=== PATIENT | male | born 1965 | race Caucasian/White ===

== ENCOUNTER 2017-06-12 19:59 | Emergency (ER) | payer SELFPAY ==
[~2017-06-12] VITALS: Ht 180.3 cm; Wt 69.2 kg
[2017-06-12] MEDS ORDERED: METRONIDAZOL500 MG PO (20:30)
[2017-06-12] MEDS ORDERED: DOXYCYCLINE HY100 MG PO (20:31)
[2017-06-12] MEDS ORDERED: PANTOPRAZOLE SO40 M1 PO (20:32)
[2017-06-12] MEDS ORDERED: PEPTO BISMOL262 MG PO (20:32)
[2017-06-12 21:05] LABS: HEMATOCRIT 38.9 % (39.0-50.0); HEMOGLOBIN 12.6 g/dl (14.0-18.0); IMMATURE GRANULOCYTES 0.4 % (0.0-1.0); MEAN CELL VOLUME 90.3 fL CALC (80.0-100.0); MEAN CORPUSCULAR HGB 29.2 pG CALC (26.0-32.0); MEAN CORPUSCULAR HGB CONC 32.4 g/L CALC (32.0-36.0); NEUT# 4.09 thou/uL (1.82-7.42); RED BLOOD COUNT 4.31 mill/uL (4.70-6.10)
[2017-06-12 21:24] LABS: INTERNATIONAL NORMALIZED RATIO 1.1 RATIO (0.7-1.3)
[2017-06-12 21:50] LABS: ALBUMIN 3.2 g/dL (3.2-5.0); ALKALINE PHOSPHATASE 49 u/l (38-126); ANION GAP 15 (6-22 (CALC)); BILIRUBIN, TOTAL 0.3 mg/dL (0.0-1.4); BUN 11 mg/dL (9-20); BUN/CREATININE RATIO 12 (12-20 (CALC)); CARBON DIOXIDE 27 mmol/l (22-30); CHLORIDE 104 mmol/l (95-108); CREATININE 0.9 mg/dL (0.7-1.3); GFR > 60 ML/MIN (>=60 (CALC)); GFR FOR AFR.AMER. > 60 ML/MIN (>=60 (CALC)); POTASSIUM 3.9 mmol/l (3.5-5.1); SGOT/AST 54 u/l (17-59); SGPT/ALT 37 u/l (21-72); SODIUM 141 mmol/l (137-146)
[2017-06-12 22:02] LABS: MYOGLOBIN 43 ng/mL (0 - 121)
[2017-06-12 23:42] VITALS: BP 112/62
== END 2017-06-12 23:42 | disposition short-term general hospital (02) | DRG 206 ==
LOC: ED 19:59
PROVIDERS: Emergency Medicine
DX: R09.02 Hypoxemia (principal); I95.9 Hypotension, unspecified; R91.8 Other nonspecific abnormal finding of lung field; R00.0 Tachycardia, unspecified; R06.02 Shortness of breath; R11.10 Vomiting, unspecified; R42 Dizziness and giddiness; R50.9 Fever, unspecified